=== PATIENT | male | born 1940 | race Caucasian/White ===

== ENCOUNTER 2021-01-31 21:50 | Inpatient (IN) | payer MEDICARE, SELFPAY ==
[~2021-01-31] VITALS: Ht 170.2 cm; Wt 78.6 kg
[2021-02-01 00:56] LABS: BASO % 0.2 % (0.0-1.0); EOS # 0.1 10^3/uL (0.0-0.5); EOS % 0.4 % (0.0-3.0); HEMATOCRIT 38.8 % (42.0-52.0); HEMOGLOBIN 13.2 g/dl (13.5-17.5); LYMPH # 1.5 10^3/uL (1.5-5.0); LYMPH % 11.8 % (24.0-44.0); MEAN CORPUSCULAR HEMOGLOBIN 27.6 pg (27.0-33.0); MEAN CORPUSCULAR VOLUME 81.2 fl (80.0-96.0); MONO # 1.1 10^3/uL (0.0-0.8); MONO % 8.8 % (2.0-8.0); NEUTROPHILS # 10.1 10^3/uL (1.5-8.5); NEUTROPHILS % 78.4 % (36.0-66.0); PLATELET COUNT, AUTOMATED 291 10^3/uL (150-450); RED BLOOD COUNT 4.78 10^6/uL (4.30-6.10); WHITE BLOOD COUNT 12.9 10^3/uL (4.0-10.0)
--- NOTE | 2021-02-01 01:16 | REPVR ---
PROCEDURE INFORMATION: Exam: XR Chest Exam date and time: 01/31/2021 11:59 PM Age: 80 years old Clinical indication: Other: Fatique; Additional info: Fatigue TECHNIQUE: Imaging protocol: XR of the chest. Views: 1 view. COMPARISON: No relevant prior studies available. FINDINGS: Lungs: There is decreased inflation of the lungs. No focal infiltrates. Pleural spaces: Unremarkable. No pleural effusion. No pneumothorax. Heart/Mediastinum: Unremarkable. No cardiomegaly. Bones/joints: Unremarkable. IMPRESSION: Negative poor inspiratory chest. Electronically signed by: Robert Huffman On 02/01/2021 01:15:36 AM
[2021-02-01 01:22] LABS: BLOOD UREA NITROGEN 15 MG/DL (7-18); CALCIUM LEVEL 8.5 MG/DL (8.8-10.2); CARBON DIOXIDE LEVEL 25 MEQ/L (21-32); CHLORIDE LEVEL 94 MEQ/L (98-107); CREATININE FOR GFR 1.02 MG/DL (0.70-1.30); GLOMERULAR FILTRATION RATE > 60.0 (>35); GLUCOSE, FASTING 121 MG/DL (70-100); SODIUM LEVEL 127 MEQ/L (136-145)
[2021-02-01] MEDS ORDERED: GLUCOSE 4GM CHEW TABLET PO PRN (02:45)
[2021-02-01] MEDS: NS 1,000 ML IV SCH ×2 (02:45→08:33)
[2021-02-01] MEDS ORDERED: MAALOX 30 ML SUSP *UDC PO PRN (02:45)
[2021-02-01] MEDS ORDERED: MOM 30ML SUSPENSION UDC PO PRN (02:45)
[2021-02-01] MEDS ORDERED: GLUCAGON INJ 1MG VIAL SC PRN (02:45)
[2021-02-01] MEDS ORDERED: DEXTROSE 50% 50 ML SYRINGE IV PRN (02:45)
--- NOTE | 2021-02-01 02:50 | HPEPDOC ---
[facility] Medical History & Physical Date of Admission Feb 01, 2021 Date of Service: Feb 01, 2021 Attending Physician: JUNE CHRISTIE MD History and Physical CHIEF COMPLAINT: [80 y/o male w cc of swollen legs, falling off commode per clinical rn liaison] HISTORY OF PRESENT ILLNESS: [This is an 80 y/o male with a pmh of advanced dementia who was brought to the ED by ems who state patient's clinical rn liaison who lives with him and is of no familial relation said that he has been experiencing increased fatigue, swollen legs, and fell today off of the toilet. EMS also states that he has a pmh of DM, hypothyroidism. Patient is not able to give history. Physical exam reveals no peripheral edema or signs of trauma from a fall. Labwork remarkable for hyponatremia of 126.] PAST MEDICAL HISTORY: 1. [Unknown PAST SURGICAL HISTORY: 1. [Unknown SOCIAL HISTORY: Patient unable to provide d/t mentation FAMILY HISTORY: Patient unable to provide d/t mentation ALLERGIES: Please see below. REVIEW OF SYSTEMS: Patient unable to provide d/t mentation HOME MEDICATIONS: Please see below. PHYSICAL EXAMINATION: VITAL SIGNS: Please see below. GENERAL APPEARANCE: [80 y/o confused male. He does not appear to be in any distress.]. HEENT: [No mass or lesion. EOMI. Crusting of lateral mena of eyes. No scleral icterus or conjunctival erythema. Nares patent. Oral mucosa moist.]. CARDIOVASCULAR: [Regular rate, rhythm. No murmurs, rubs, gallops]. LUNGS: [Good air flow b/l. No wheezing, rales, rhonchi.]. ABDOMEN: [Soft, nontender]. MUSCULOSKELETAL: [No joint deformity]. EXTREMITIES: [No peripheral edema. No overlying skin changes. Pulses intact.]. NEUROLOGICAL: [Speech clear but nonsensical. Patient able to tell me his name is Ricki. Patient moves all fours.]. PSYCHIATRIC: [Patient has advanced dementia.]. LABORATORY DATA: See below. IMAGING: [CXR: FINDINGS: Lungs: There is decreased inflation of the lungs. No focal infiltrates. Pleural spaces: Unremarkable. No pleural effusion. No pneumothorax. Heart/Mediastinum: Unremarkable. No cardiomegaly. Bones/joints: Unremarkable. IMPRESSION: Negative poor inspiratory chest. ] MICROBIOLOGY: Please see below. ASSESSMENT: [This is an 80 y/o male with a pmh of advanced dementia who was brought to the ED by ems who state patient's clinical rn liaison who lives with him and is of no familial relation said that he has been experiencing increased fatigue, swollen legs, and fell today off of the toilet. EMS also states that he has a pmh of DM, hypothyroidism. Patient is not able to give history. Physical exam reveals no peripheral edema or signs of trauma from a fall. Labwork remarkable for hyponatremia of 126.]. . PLAN: 1. [Hyponatremia - Likely secondary to poor intake 2/2 advanced dementia - Will give ns overnight. If pt does not tolerate IV, can switch to salt tabs - Admit to med surg 2. Advanced dementia - Social service consult - Patient arrives at the ED with no outside contact information - can begin seroquel 50mg qhs as patient is obviously restless - will likely require sitter 3. DM? - will begin sliding scale coverage with hypoglycemic protocol for now 4. Hypothyroidism? - will draw thyroid studies in the am DVT prophylaxis - Lovenox]. Vital Signs Vital Signs Date Time Temp Pulse Resp B/P (MAP) Pulse Ox O2 Delivery O2 Flow Rate FiO2 02/01/21 01:50 36 99 02/01/21 01:30 18 175/73 (107) Room Air 01/31/21 22:39 98.5 Laboratory Data Labs 24H Laboratory Tests 2 02/01/21 00:47: Immature Granulocyte % (Auto) 0.4, Neutrophils (%) (Auto) 78.4H, Lymphocytes (%) (Auto) 11.8L, Monocytes (%) (Auto) 8.8H, Eosinophils (%) (Auto) 0.4, Basophils (%) (Auto) 0.2, Neutrophils # (Auto) 10.1H, Lymphocytes # (Auto) 1.5, Monocytes # (Auto) 1.1H, Eosinophils # (Auto) 0.1, Basophils # (Auto) 0.0, Nucleated Red Blood Cells % (auto) 0.0, Anion Gap 8, Glomerular Filtration Rate > 60.0, Calcium Level 8.5L CBC/BMP Laboratory Tests 02/01/21 00:47 Allergies Coded Allergies: No Known Allergies (Unverified , 01/31/21) A-FIB/CHADSVASC A-FIB History Current/History of A-Fib/PAF?: No Attending Note Attending Note Time of service 354am Per Mr Lay is an 80 y r old w dementia who was sent by a caregiver for evaluation of swollen feet after he slipped from his commode. His physical exam was remarkable for orientation only to person; per d/w LEXI Singer in the ER the patient was physically aggressive therefore she was not able to start an IV to administer IVF Admitting diagnoses: # Uncontrolled HTN # Leukocytosis # Hyponatremia. Plan: f/u hyponatremia work up / amlodipine / PFS consult to track down family Rest per LETITIA Navarro H&P MARIJA HERNANDEZ Feb 01, 2021 02:50 JUNE CHRISTIE MD Feb 01, 2021 08:52
[2021-02-01 02:51] LABS: RSV AMPLIFICATION NEGATIVE (NEGATIVE)
[2021-02-01 06:00] VITALS: BP 122/80
[2021-02-01 07:28] LABS: BASO % 0.4 % (0.0-1.0); EOS # 0.1 10^3/uL (0.0-0.5); EOS % 0.6 % (0.0-3.0); HEMATOCRIT 40.2 % (42.0-52.0); HEMOGLOBIN 13.7 g/dl (13.5-17.5); LYMPH # 1.9 10^3/uL (1.5-5.0); LYMPH % 17.8 % (24.0-44.0); MEAN CORPUSCULAR HEMOGLOBIN 28.1 pg (27.0-33.0); MEAN CORPUSCULAR HGB CONC 34.1 g/dl (32.0-36.5); MEAN CORPUSCULAR VOLUME 82.5 fl (80.0-96.0); MONO # 0.9 10^3/uL (0.0-0.8); MONO % 8.5 % (2.0-8.0); NEUTROPHILS # 7.8 10^3/uL (1.5-8.5); NEUTROPHILS % 72.1 % (36.0-66.0); PLATELET COUNT, AUTOMATED 296 10^3/uL (150-450); RED BLOOD COUNT 4.87 10^6/uL (4.30-6.10); WHITE BLOOD COUNT 10.9 10^3/uL (4.0-10.0)
[2021-02-01 08:00] LABS: BLOOD UREA NITROGEN 13 MG/DL (7-18); CALCIUM LEVEL 8.5 MG/DL (8.8-10.2); CARBON DIOXIDE LEVEL 26 MEQ/L (21-32); CHLORIDE LEVEL 93 MEQ/L (98-107); FREE T4 1.51 NG/DL (0.76-1.46); GLOMERULAR FILTRATION RATE > 60.0 (>35); GLUCOSE, FASTING 117 MG/DL (70-100); SODIUM LEVEL 125 MEQ/L (136-145)
[2021-02-01] MEDS: HumaLOG INSULIN (NovoLOG) PER UNIT SC SCH ×4 (08:33→20:33)
[2021-02-01] MEDS: ENOXAPARIN 40MG/0.4ML SYRINGE (J1650 PER 10MG) SC SCH (08:33)
[2021-02-01] MEDS ORDERED: ASPI-161 PO (09:00)
[2021-02-01] MEDS ORDERED: PATIENT COMMENT (09:00)
[2021-02-01] MEDS ORDERED: LEVO100T54 PO (09:00)
[2021-02-01] MEDS ORDERED: MAGN1CAP PO (09:00)
[2021-02-01] MEDS ORDERED: METF500T13 PO (09:00)
[2021-02-01] MEDS ORDERED: MELA10CA PO (09:00)
[2021-02-01] MEDS ORDERED: VITMTA PO (09:00)
[2021-02-01] MEDS ORDERED: ZOLO100T PO (09:00)
[2021-02-01] MEDS ORDERED: ATOR1TAB21 PO (09:00)
[2021-02-01] MEDS ORDERED: AMLO1TAB25 PO (09:00)
[2021-02-01] MEDS ORDERED: LANTINJ4 SC (09:00)
[2021-02-01] MEDS ORDERED: CARB25TA9 PO (09:00)
[2021-02-01 09:49] LABS: CORTISOL AM 12.1 UG/DL (4.3-22.4)
[2021-02-01 10:03] LABS: HEMOGLOBIN A1c 6.2 %
[2021-02-01 10:06] LABS: OSMOLALITY SERUM 260 MOSM/KG (280-301)
[2021-02-01 14:00] VITALS: BP 157/62
--- NOTE | 2021-02-01 16:38 | IPNPDOC ---
Text Note Date of Service The patient was seen on 02/01/21. NOTE SUBJECTIVE: Patient is lying supine in bed, watching TV. Minimally conversant but awake. Denies any ROS though history is limited d/t significant dementia. Nursing staff reporting patient is refusing medications and IV. Attempted to contact caregiver at [phone] with no response and no identified VM. PHYSICAL EXAMINATION: VITAL SIGNS: see below GENERAL APPEARANCE: Awake, alert, oriented to person only NAD HEENT: Atraumatic, normocephalic. Eyes are anicteric. Mucous membranes are pink and moist CARDIOVASCULAR: NSR, regular rhythm, no noted murmurs, No JVD LUNGS: CTAB ABDOMEN: Normoactive sounds, soft, nondistended. No rebound tenderness or guarding. EXTREMITIES: No appreciable extremity edema, no apparent rashes/petechiae, abrasions to bilateral knees/lower extremities that are well healed. NEUROLOGICAL: Awake, speech is clear but limited, AOx1 (self) only LABORATORY DATA: as per below IMAGING: No recent studies. ASSESSMENT: This is an 80 y/o male with a pmh of advanced dementia who was brought to the ED by EMS who state patient's instrument assembly supervisor who lives with him and is of no familial relation said that he has been experiencing increased fatigue, swollen legs, and fell off the toilet. Admission labs demonstrated a mild hyponatremia PLAN: # Hyponatremia: Likely secondary to poor po intake as patient is mostly euvolemic and serum o smolality is low. Have attempted to replete with IV NS however patient is refusing IV. Will provide with salt tablets. - 1gm NaCl PO QID - BMP QAM - Attempt IVs intermittently # Advanced Dementia: Attempted to make contact with caregiver to secure number for family to discuss goals of care. Anticipate fpc caregiving needs beyond what are available at home currently. Will engage PT/OT and PFS early to ensure that patient has a successful transition to next level of care as following resolution of hyponatremia he would be able to discharge from the inpatient service. # Elevated serum glucose: Patient has used several units of ISS. Will obtain HA1c - Low dose ISS - FSBG AC QHS Dispo: Unclear, will need additional care services or fpc care facility upon discharge Code: Full Code Diet: consistent carbohydrate diet DVT Prophy: Lovenox 40mg SQ daily Consults: PFS, PT, OT VS,Louis, I+O VS, Fishbone, I+O Laboratory Tests 02/01/21 00:47 02/01/21 07:00 Vital Signs Date Time Temp Pulse Resp B/P (MAP) Pulse Ox O2 Delivery O2 Flow Rate FiO2 02/01/21 14:00 98.0 68 18 157/62 (93) 98 Room Air I&O- Last 24 Hours up to 6 AM 02/01/21 06:00 Intake Total 100 ml Balance 100 ml EMILY TRAORE MD MPH Feb 01, 2021 16:38
[2021-02-01] MEDS: SODIUM CHLORIDE 1 GM TAB PO SCH (18:08)
[2021-02-01] MEDS: QUEtiapine FUMARATE 50MG TAB PO SCH (20:32)
[2021-02-01] MEDS: ACETAMINOPHEN TAB 650MG DOSE (2X325MG) PO PRN (20:32)
[2021-02-01 22:00] VITALS: BP 157/63
[2021-02-02] MEDS ORDERED: PILL CUTTER 1 EACH XX PRN (02:25)
[2021-02-02 06:00] VITALS: BP 175/55
--- NOTE | 2021-02-02 08:12 | ECGEPIP ---
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
[2021-02-02] MEDS: ENOXAPARIN 40MG/0.4ML SYRINGE (J1650 PER 10MG) SC SCH (08:58)
[2021-02-02] MEDS: HumaLOG INSULIN (NovoLOG) PER UNIT SC SCH ×4 (08:58→21:00)
[2021-02-02] MEDS: SODIUM CHLORIDE 1 GM TAB PO SCH ×3 (08:58→18:00)
--- NOTE | 2021-02-02 12:47 | REP ---
INDICATION: shortening of left leg, unknown duration, no clinical fx. COMPARISON: None TECHNIQUE: AP pelvis with bilateral AP and frog-lateral views of the hips FINDINGS: AP pelvis shows the hip joint spaces to be symmetric and mildly asymmetrically narrowed. The femoral heads are spherical in shape and symmetric in appearance. There is evidence of mild buttressing left greater than right. There is no acute fracture, dislocation, or subluxation. Right hip two views no acute fracture, dislocation, or subluxation. Mild rather symmetric appearing hip joint space narrowing. Two views left hip: Mild rather symmetric appearing hip joint space narrowing without evidence of acute fracture, dislocation, or subluxation. IMPRESSION: Mild chronic changes as described above. <Electronically signed by Guy Mcelroy > 02/02/21 [id number]
[2021-02-02 14:00] VITALS: BP 113/52
--- NOTE | 2021-02-02 16:38 | IPNPDOC ---
Text Note Date of Service The patient was seen on 02/02/21. NOTE SUBJECTIVE: Patient is lying supine in bed, awake but minimally conversant, pleasant and declining any acute concerns. No concerns from nursing staff. PHYSICAL EXAMINATION: VITAL SIGNS: see below GENERAL APPEARANCE: Awake, alert, oriented to person only NAD HEENT: Atraumatic, normocephalic. Eyes are anicteric. Mucous membranes are pink and moist CARDIOVASCULAR: NSR, regular rhythm, no noted murmurs, No JVD LUNGS: CTAB ABDOMEN: Normoactive sounds, soft, nondistended. No rebound tenderness or guarding. EXTREMITIES: No appreciable extremity edema, no apparent rashes/petechiae, abrasions to bilateral knees/lower extremities that are well healed. No appreciable lower extremity shortening/rotation. NEUROLOGICAL: Awake, speech is clear but limited, AOx1 (self) only LABORATORY DATA: as per below IMAGING: B/L hip XR: Right hip two views no acute fracture, dislocation, or subluxation. Mild rather symmetric appearing hip joint space narrowing. Two views left hip: Mild rather symmetric appearing hip joint space narrowing without evidence of acute fracture, dislocation, or subluxation. IMPRESSION: Mild chronic changes as described above. ASSESSMENT: This is an 80 y/o male with a pmh of advanced dementia who was brought to the ED by EMS who state patient's binding dyer who lives with him and is of no familial relation said that he has been experiencing increased fatigue, swollen legs, and fell off the toilet. Admission labs demonstrated a mild hyponatremia PLAN: # Hyponatremia: Likely secondary to poor po intake as patient is mostly euvolemic and serum osmolality is low. Have attempted to replete with IV NS however patient is refusing IV. Will provide with salt tablets. - 1gm NaCl PO QID - BMP QAM - Attempt IVs intermittently # Advanced Dementia: Attempted to make contact with caregiver to secure number for family to discuss goals of care. Anticipate detention caregiving needs beyond what are available at home currently. Will engage PT/OT and PFS early to ensure that patient has a s uccessful transition to next level of care as following improvement of hyponatremia he would be able to discharge from the inpatient service. # Elevated serum glucose: Patient has used several units of ISS. HA1c is 6.2 - Low dose ISS - FSBG AC QHS # lower extremity wounds: From frequent falls, will continue to manage skin and prevent breakdown - falls risk - regular turns # concern for hip asymmetry: Concern for left leg shorter than right leg seen on nursing exam this morning, patient has not demonstrated pain in lower extremities and has not had significantly shortened/rotated lower extremities concerning for fracture. XR obtained was unremarkable for acute changes. Dispo: Unclear, will need additional care services or hot dog vender care facility upon discharge, attempting to engage with family. Transition to [facility] following demonstrated improvement in serum sodium as patient could be managed as outpatient for this. Code: Full Code Diet: consistent carbohydrate diet, soft foods, pureed foods DVT Prophy: Lovenox 40mg SQ daily Consults: PFS, PT, OT VS,Fishbone, I+O VS, Fishbone, I+O Vital Signs Date Time Temp Pulse Resp B/P (MAP) Pulse Ox O2 Delivery O2 Flow Rate FiO2 02/02/21 14:00 97.4 74 20 113/52 (72) 98 Room Air I&O- Last 24 Hours up to 6 AM 02/02/21 06:00 Intake Total 950 ml Output Total 0 ml Balance 950 ml EMILY TRAORE MD MPH Feb 02, 2021 16:38
[2021-02-02 17:38] LABS: BLOOD UREA NITROGEN 17 MG/DL (7-18); CALCIUM LEVEL 8.3 MG/DL (8.8-10.2); CARBON DIOXIDE LEVEL 25 MEQ/L (21-32); CHLORIDE LEVEL 103 MEQ/L (98-107); CREATININE FOR GFR 0.98 MG/DL (0.70-1.30); GLOMERULAR FILTRATION RATE > 60.0 (>35); GLUCOSE, FASTING 225 MG/DL (70-100); POTASSIUM SERUM 4.7 MEQ/L (3.5-5.1); SODIUM LEVEL 134 MEQ/L (136-145)
[2021-02-02 21:00] VITALS: BP 160/76
[2021-02-02] MEDS: QUEtiapine FUMARATE 50MG TAB PO SCH (21:28)
[2021-02-03 06:00] VITALS: BP 172/71
[2021-02-03 06:05] VITALS: BP 158/78
[2021-02-03] MEDS: HumaLOG INSULIN (NovoLOG) PER UNIT SC SCH ×4 (07:30→20:41)
[2021-02-03] MEDS: ENOXAPARIN 40MG/0.4ML SYRINGE (J1650 PER 10MG) SC SCH (09:17)
[2021-02-03] MEDS: SODIUM CHLORIDE 1 GM TAB PO SCH (09:17)
[2021-02-03] MEDS: ACETAMINOPHEN TAB 650MG DOSE (2X325MG) PO PRN (19:42)
[2021-02-03] MEDS: QUEtiapine FUMARATE 50MG TAB PO SCH (19:42)
[2021-02-04 06:00] VITALS: BP 143/54
[2021-02-04] MEDS: SODIUM CHLORIDE 1 GM TAB PO SCH (08:59)
[2021-02-04] MEDS: ENOXAPARIN 40MG/0.4ML SYRINGE (J1650 PER 10MG) SC SCH (08:59)
[2021-02-04] MEDS: HumaLOG INSULIN (NovoLOG) PER UNIT SC SCH ×4 (08:59→21:00)
[2021-02-04] MEDS: QUEtiapine FUMARATE 50MG TAB PO SCH (20:20)
[2021-02-04] MEDS: ACETAMINOPHEN TAB 650MG DOSE (2X325MG) PO PRN (20:20)
[2021-02-05 06:00] VITALS: BP 161/57
[2021-02-05 08:20] VITALS: BP 122/74
[2021-02-05] MEDS: SODIUM CHLORIDE 1 GM TAB PO SCH (08:48)
[2021-02-05] MEDS: ENOXAPARIN 40MG/0.4ML SYRINGE (J1650 PER 10MG) SC SCH (08:49)
[2021-02-05] MEDS: HumaLOG INSULIN (NovoLOG) PER UNIT SC SCH ×4 (08:49→21:00)
[2021-02-05 09:01] VITALS: BP 125/87
[2021-02-05 13:30] VITALS: BP 138/62
[2021-02-05] MEDS: QUEtiapine FUMARATE 50MG TAB PO SCH (21:38)
[2021-02-06 06:00] VITALS: BP 128/65
[2021-02-06] MEDS: ENOXAPARIN 40MG/0.4ML SYRINGE (J1650 PER 10MG) SC SCH (08:31)
[2021-02-06] MEDS: SODIUM CHLORIDE 1 GM TAB PO SCH (08:31)
[2021-02-06] MEDS: HumaLOG INSULIN (NovoLOG) PER UNIT SC SCH ×4 (09:32→20:11)
[2021-02-06] MEDS: ACETAMINOPHEN TAB 650MG DOSE (2X325MG) PO PRN ×2 (15:23→20:26)
[2021-02-06] MEDS: QUEtiapine FUMARATE 50MG TAB PO SCH (20:26)
[2021-02-07 06:00] VITALS: BP 132/69
[2021-02-07] MEDS: HumaLOG INSULIN (NovoLOG) PER UNIT SC SCH ×4 (07:30→20:45)
[2021-02-07] MEDS: SODIUM CHLORIDE 1 GM TAB PO SCH (08:43)
[2021-02-07] MEDS: ENOXAPARIN 40MG/0.4ML SYRINGE (J1650 PER 10MG) SC SCH (08:43)
[2021-02-07 20:20] VITALS: BP 167/72
[2021-02-07] MEDS: QUEtiapine FUMARATE 50MG TAB PO SCH (20:44)
[2021-02-08 06:00] VITALS: BP 134/53
[2021-02-08] MEDS: HumaLOG INSULIN (NovoLOG) PER UNIT SC SCH ×4 (07:30→20:48)
[2021-02-08] MEDS: SODIUM CHLORIDE 1 GM TAB PO SCH (09:51)
[2021-02-08] MEDS: ENOXAPARIN 40MG/0.4ML SYRINGE (J1650 PER 10MG) SC SCH (09:55)
[2021-02-08] MEDS: QUEtiapine FUMARATE 50MG TAB PO SCH (20:51)
[2021-02-09 06:00] VITALS: BP 134/59
[2021-02-09] MEDS: HumaLOG INSULIN (NovoLOG) PER UNIT SC SCH ×4 (07:30→20:23)
[2021-02-09] MEDS: ENOXAPARIN 40MG/0.4ML SYRINGE (J1650 PER 10MG) SC SCH (09:25)
[2021-02-09] MEDS: SODIUM CHLORIDE 1 GM TAB PO SCH (09:25)
[2021-02-09] MEDS ORDERED: VARIBAR PUDDING 40% w/v 230ML TUBE As Ordered ONE (13:53)
[2021-02-09] MEDS ORDERED: VARIBAR NECTAR 40% w/v 240ML SUSP BTL As Ordered ONE (13:53)
[2021-02-09] MEDS ORDERED: BARIUM SULFATE 700 MG TABLET (E-Z-DISK) As Ordered ONE (13:54)
[2021-02-09] MEDS ORDERED: E-Z-GAS II EFFERVESCENT PACKET (SODIUM BICARB./CITRIC ACID/SIMETHICONE) As Ordered ONE (13:54)
[2021-02-09] MEDS ORDERED: E-Z-PAQUE 96% w/w SUSP 176GM BTL As Ordered ONE (13:54)
--- NOTE | 2021-02-09 16:47 | REP ---
INDICATION: Rule out aspiration. COMPARISON: None. TECHNIQUE: The procedure was performed by Yamile Kenney [facility], under the direct supervision of Dr. Gonzales. The procedure was performed with Sujatha Walters and Ana Laura Robins from speech pathology present. 5 ml aliquots of thin, pudding, mixed fruit, nectar thick, soft food, hard food and pill consistency barium was administered. FINDINGS: Both aspiration and penetration or visualized during the exam. The detailed report of this examination will be provided by speech pathology. IMPRESSION: Aspiration and penetration were visualized, a detailed report will be provided by speech pathology. 2.4 minutes of fluoroscopy time was utilized for this procedure. Some fluoroscopic images are performed with last image hold technology. These images require no additional radiation <Electronically signed by Yamile Kenney > 02/09/21 1522 <Electronically signed by Marco Gonzales > 02/09/21 [id number]
[2021-02-09] MEDS: QUEtiapine FUMARATE 50MG TAB PO SCH (20:23)
[2021-02-10 06:00] VITALS: BP 166/75
[2021-02-10] MEDS ORDERED: AMLO25TA PO (08:00)
[2021-02-10] MEDS ORDERED: SODI1TAB6 PO (08:00)
[2021-02-10] MEDS ORDERED: QUET50TA3 PO (08:00)
--- NOTE | 2021-02-10 08:09 | DS.PDOC ---
Discharge Summary General Date of Admission Feb 01, 2021 at 02:58 Date of Discharge 02/10/2021 Attending Physician: MARCOS HOUSE MD Discharge Summary PROCEDURES PERFORMED DURING STAY: None ADMITTING DIAGNOSES: Hyponatremia Progressive advanced dementia Fall DISCHARGE DIAGNOSES: Advanced dementia Hypothyroidism DM HLD Hyponatremia COMPLICATIONS/CHIEF COMPLAINT: Dementia, Hyponatremia. HISTORY OF PRESENT ILLNESS: 80 y/o man with a pmh of advanced dementia who was brought to the ED by ems who reported patient's pull tab dealer who lives with him and is of no familial relation said that he had been experiencing increased fatigue, swollen legs, and fell off of the toilet. EMS also states that he has a pmh of DM, hypothyroidism. Patient was not able to give history. HOSPITAL COURSE: Vitals were wnl. Physical exam revealed no peripheral edema or signs of trauma from a fall. Labwork was remarkable for hyponatremia of 126 that was deemed 2/2 dehydration and improved with hydration and eventual replacement salt tabs. A fter much discussion with family and PFS, he is now being discharged to the [facility] and he was switched from zoloft to QHS quetiapine. DISCHARGE MEDICATIONS: Please see below. ALLERGIES: Please see below. PHYSICAL EXAMINATION ON DISCHARGE: VITAL SIGNS: Please see below. VITAL SIGNS: see below GENERAL APPEARANCE: Awake, alert, oriented to person only NAD HEENT: Atraumatic, normocephalic. Eyes are anicteric. Mucous membranes are pink and moist CARDIOVASCULAR: NSR, regular rhythm, no noted murmurs, No JVD LUNGS: CTAB ABDOMEN: Normoactive sounds, soft, nondistended. No rebound tenderness or guarding. EXTREMITIES: No LE edema, no apparent rashes/petechiae. NEUROLOGICAL: Awake, AOx1 to self LABORATORY DATA: please see below IMAGING: B/L hip XR: Right hip two views no acute fracture, dislocation, or subluxation. Mild rather symmetric appearing hip joint space narrowing. Two views left hip: Mild rather symmetric appearing hip joint space narrowing without evidence of acute fracture, dislocation, or subluxation. IMPRESSION: Mild chronic changes as described above. PROGNOSIS: Good ACTIVITY: As tolerated DIET: consistent carb DISCHARGE PLAN: discharge to the [place], [place]. Recommend GP/PCP follow up within 7d of hospital discharge DISPOSITION: discharge to the [place], [place]. DISCHARGE INSTRUCTIONS: Recommend GP/PCP follow up within 7d of hospital discharge ITEMS TO FOLLOWUP ON ON OUTPATIENT: Dementia Hyponatremia DISCHARGE CONDITION: Stable TIME SPENT ON DISCHARGE: 40 minutes. Vital Signs/I&Os Vital Signs Date Time Temp Pulse Resp B/P (MAP) Pulse Ox O2 Delivery O2 Flow Rate FiO2 02/10/21 06:00 97.3 59 18 166/75 (105) 96 Room Air I&O- Last 24 Hours up to 6 AM 02/10/21 06:00 Intake Total 780 ml Output Total 0 ml Balance 780 ml Discharge Medications Scheduled Amlodipine Besylate (Amlodipine Besylate) 2.5 Mg Tablet, 1 TAB PO DAILY Aspirin (Aspirin EC) 81 Mg Tablet.dr, 81 MG PO DAILY, (Reported) Atorvastatin Calcium (Atorvastatin Calcium) 20 Mg Tablet, 20 MG PO QHS, (Reported) Carbidopa/Levodopa (Carbidopa-Levodopa 25-100 Tab) 1 Each Tablet, 1 TAB PO TID, (Reported) Insulin Glargine,Hum.rec.anlog (Lantus Solostar) 100 Unit/1 Ml Insuln.pen, 15 UNITS SC DAILY, (Reported) Levothyroxine Sodium (Levoxyl) 100 Mcg Tablet, 100 MCG PO DAILY, (Reported) Magnesium Oxide (Magnesium) 500 Mg Capsule, 500 MG PO DAILY, (Reported) Metformin HCl (Metformin HCl) 500 Mg Tablet, 500 MG PO BID, (Reported) Multivitamins (Thera M Plus Tablet) 1 Each Tablet, 1 TAB PO DAILY, (Reported) Quetiapine Fumarate (Quetiapine Fumarate) 50 Mg Tablet, 50 MG PO QHS Sodium Chloride (Sodium Chloride) 1 Gm Tablet, 1 GM PO QAM Miscellaneous Medications [Patient Comment] , (Reported) MED LIST OBTAINED FROM [facility] - THEY HAVE NOT FILLED ANY MEDICATIONS SINCE JULY 2020, PER CAREGIVER HASN'T HAD MEDS FILLED IN ABOUT 3 MONTHS BUT TOOK ALL MEDICATIONS YESTERDAY. Allergies Coded Allergies: No Known Allergies (Unverified , 01/31/21) MARCOS HOUSE MD Feb 10, 2021 08:09
[2021-02-10] MEDS: HumaLOG INSULIN (NovoLOG) PER UNIT SC SCH ×2 (08:15→13:08)
[2021-02-10 08:16] VITALS: BP 155/72
[2021-02-10] MEDS: ACETAMINOPHEN TAB 650MG DOSE (2X325MG) PO PRN (08:16)
[2021-02-10] MEDS: ENOXAPARIN 40MG/0.4ML SYRINGE (J1650 PER 10MG) SC SCH (08:17)
[2021-02-10] MEDS: SODIUM CHLORIDE 1 GM TAB PO SCH (08:17)
== END 2021-02-10 13:21 | DRG 641 ==
LOC: M ED 21:50 → M ED INP 02-01 02:58 → ENRESERV 02-01 04:35 → M MS5PR 02-01 05:45
PROVIDERS: ADMIT Internal Medicine; ATTEND Internal Medicine
DX: E87.1 Hypo-osmolality and hyponatremia (principal); F03.90 Unspecified dementia, unspecified severity, without behavioral disturbance, psychotic disturbance, mood disturbance, and anxiety; E03.9 Hypothyroidism, unspecified; E11.9 Type 2 diabetes mellitus without complications; D72.829 Elevated white blood cell count, unspecified; E78.5 Hyperlipidemia, unspecified